=== PATIENT | male | born 1950 | race Caucasian/White ===

== ENCOUNTER → 2018-05-20 14:56 | Outpatient (REF) | payer MEDICARE, OTHER, SELFPAY | LOC: LAB 14:56 | PROVIDERS: Visit Provider Otolaryngology | DX: J32.9 Chronic sinusitis, unspecified (principal); J33.9 Nasal polyp, unspecified; J34.2 Deviated nasal septum | CPT/HCPCS: 87070; 87077 ==

== ENCOUNTER → 2020-03-16 11:53 | Outpatient (CLI) | payer MEDICARE, OTHER, SELFPAY ==
[2020-03-16 13:33] LABS: Hematocrit 44.3 % (41-53); Hemoglobin 14.7 g/dL (13.5-17.5); Mean Corpuscular HGB Conc 33.2 % (30-36); Mean Corpuscular Volume 93.4 fL (80-100); Platelet Count 235 X10^3/uL (150-400); Red Blood Cell Count 4.75 X10^6/uL (4.5-5.9); Red Cell Distribution Width 13.6 % (11.6-14.8); White Blood Cell Count 20.4 X10^3/uL (4.5-11.0)
[2020-03-16 13:34] LABS: Add Manual Diff / Slide Review YES
[2020-03-16 13:49] LABS: Alanine Aminotransferase 23 IU/L (<50); Albumin Globulin Ratio 1.3 (1.0-2.8); Alkaline Phosphatase 95 U/L (38-126); Aspartate Aminotransferase 25 IU/L (17-59); BUN Creatinine Ratio 17.1 (6-22); Bilirubin Total 0.2 mg/dL (0.2-1.3); Blood Urea Nitrogen 19 mg/dL (9-20); Calcium 9.2 mg/dL (8.4-10.2); Carbon Dioxide 30 mmol/L (22-32); Chloride 105 mmol/L (98-107); Cholesterol 167 mg/dL (140-199); Estimated Glomerular Filt Rate > 60.0 mL/min (>60); Globulin 3.1 g/dL (1.7-4.1); Glucose 95 mg/dL (80-110); HDL Cholesterol 33 mg/dL (40-60); HEMOLYSIS < 15 (0-50); LDL Cholesterol Calculated 113 mg/dL (<100); Potassium 4.7 mmol/L (3.4-5.1); Sodium 138 mmol/L (137-145); Total Protein 7.1 g/dL (6.3-8.2); Triglycerides 105 mg/dL (35-150)
[2020-03-16 13:55] LABS: Neutrophils Absolute Manual 5916 /uL (3000-5900); Smudge Cells 2+; Total Cells Counted 100
[2020-03-16 13:56] LABS: NT-proBNP (BNP-Adult 18+) 166 pg/mL (<125)
[2020-03-16 14:42] LABS: Thyroid Stimulating Hormone 0.139 uIU/mL (0.47-4.68)
== END ==
PROVIDERS: PCP Family Medicine; Referring Provider Internal Medicine Cardiovascular Disease; Visit Provider Internal Medicine Cardiovascular Disease
DX: R06.00 Dyspnea, unspecified (principal); I49.3 Ventricular premature depolarization; E03.9 Hypothyroidism, unspecified; Z13.220 Encounter for screening for lipoid disorders; R05 Cough; R00.1 Bradycardia, unspecified
CPT/HCPCS: 36415; 80053; 80061; 83735; 83880; 84443; 85007; 85025